=== PATIENT | male | born 1945 | race Caucasian/White ===

== ENCOUNTER → 2016-09-20 | Outpatient (CLI) | payer MEDICARE, OTHER ==
[~2016-09-20] MED LIST: CARV25TA PO; ENAL20TA PO; ESOM40CA PO; FINA5TAB4 PO; FLUT16SP2 NS; HYDR-210 PO; IBUP-1060 PO; IPRA4AER IH; LIPITOR80 MG PO; NITR0.4T SL; NITR1PAT11 TD; SERT50TA PO; TAMS0.4C97 PO; TRAM50TA PO
--- NOTE | 2016-09-20 10:58 | RAD ---
Indication neck pain. AP lateral and odontoid views of the cervical spine were obtained. C1-C6 is seen. C7 is partially visualized. Significant degenerative changes are not seen on plain films particularly given the patient's age. An acute bony finding is not apparent. The prevertebral soft tissues appear unremarkable. IMPRESSION: No significant finding seen in the cervical spine on plain films
== END | disposition home or self-care (01) ==
LOC: RAD 10:10
PROVIDERS: ATTEND Internal Medicine
DX: M47.22 Other spondylosis with radiculopathy, cervical region (principal); M50.30 Other cervical disc degeneration, unspecified cervical region
CPT/HCPCS: 72040

== ENCOUNTER → 2016-12-28 | Outpatient (CLI) | payer MEDICARE, OTHER ==
--- NOTE | 2016-12-28 08:48 | KCIC ---
PROCEDURE Cervical spine MRI without contrast. HISTORY Left-sided neck pain. TECHNIQUE Multiplanar and multi sequence magnetic resonance imaging of the cervical spine was performed without contrast. COMPARISON Radiographs dated 09/20/2016. FINDINGS There is minimal anterolisthesis of C3 on C4, retrolisthesis of C5 on C6 and mild anterolisthesis of C6 on C7 and C7 on T1. There is degenerative endplate remodeling with osteophytosis at multiple levels. There is a mild chronic anterior wedge deformity of T1. There is a small suspected bone island within this segment. There is deformation of the spinal cord due to central canal stenosis predominately at C5-C6 and C6-C7, described in detail below. No spinal cord lesion is seen. The posterior fossa is unremarkable. At C2-C3, there is mild endplate remodeling. There is mild right and moderate left facet arthropathy. There is mild left foraminal stenosis. At C3-C4, there is a diffuse disc bulge and endplate osteophytosis. There is uncovertebral arthropathy. There is mild right and moderate left facet arthropathy. There is mild right and moderate left foraminal stenosis. There is minimal central canal stenosis measuring 9.4 mm in anterior-posterior dimension. At C4-C5, there is endplate remodeling. There is moderate facet arthropathy. There is mild bilateral foraminal stenosis. At C5-C6, there is a broad-based posterior central to left paracentral disc protrusion superimposed on a left lateral predominant disc bulge and endplate osteophytosis. There is uncovertebral arthropathy. There is moderate facet arthropathy. There is buckling of the ligamentum flavum. There is moderate right and severe left foraminal stenosis. There is deformation of the spinal cord with moderate central canal stenosis measuring 7.7 mm in anterior-posterior dimension. At C6-C7, there is a posterior central disc protrusion superimposed on a disc bulge and endplate remodeling. There is mild to moderate facet arthropathy. There is buckling of the ligamentum flavum. There is mild bilateral foraminal stenosis. There is moderate central canal stenosis measuring 7.3 mm in anterior-posterior dimension. IMPRESSION Multilevel degenerative change within the cervical spine, described in detail above. This results in mild left foraminal stenosis at C2-C3, mild right and moderate left foraminal and minimal central canal stenosis at C3-C4, mild bilateral foraminal stenosis at C4-C5, moderate right and severe left foraminal and moderate central canal stenosis at C5-C6, and mild bilateral foraminal and moderate central canal stenosis at C6-C7. Electronically signed by: Maribel Velasquez (Dec 28, 2016 08:46:23)
== END | disposition home or self-care (01) ==
LOC: KCIC MRI 07:36
PROVIDERS: ATTEND Internal Medicine
DX: M48.02 Spinal stenosis, cervical region (principal)
CPT/HCPCS: 72141

== ENCOUNTER → 2017-10-17 | Outpatient (CLI) | payer MEDICARE, OTHER ==
[~2017-10-17] MED LIST changes: -CARV25TA PO; -ENAL20TA PO; -ESOM40CA PO; -FINA5TAB4 PO; -FLUT16SP2 NS; -HYDR-210 PO; -IBUP-1060 PO; +IOHEXOL 180 MG/ML 10 ML VIAL.; -IPRA4AER IH; -LIPITOR80 MG PO; -NITR0.4T SL; -NITR1PAT11 TD; -SERT50TA PO; -TAMS0.4C97 PO; -TRAM50TA PO; +methylPREDNISolone ACETATE 40 MG/ML VIAL.; +methylPREDNISolone ACETATE 80 MG/ML VIAL.
== END | disposition home or self-care (01) ==
LOC: PNCL 08:16
DX: M50.123 Cervical disc disorder at C6-C7 level with radiculopathy (principal); M48.02 Spinal stenosis, cervical region; I10 Essential (primary) hypertension; M19.90 Unspecified osteoarthritis, unspecified site; E78.00 Pure hypercholesterolemia, unspecified; F32.9 Major depressive disorder, single episode, unspecified; F17.200 Nicotine dependence, unspecified, uncomplicated; I25.10 Atherosclerotic heart disease of native coronary artery without angina pectoris; Z98.41 Cataract extraction status, right eye; Z98.42 Cataract extraction status, left eye; Z90.49 Acquired absence of other specified parts of digestive tract
CPT/HCPCS: 62321; J1030; J1040; Q9965

== ENCOUNTER → 2017-11-14 | Outpatient (CLI) | payer MEDICARE, OTHER | LOC: PNCL 09:16 | DX: M50.10 Cervical disc disorder with radiculopathy, unspecified cervical region (principal); M48.02 Spinal stenosis, cervical region; I20.8 Other forms of angina pectoris; I10 Essential (primary) hypertension; I50.9 Heart failure, unspecified; E78.00 Pure hypercholesterolemia, unspecified; J44.9 Chronic obstructive pulmonary disease, unspecified; K21.9 Gastro-esophageal reflux disease without esophagitis; N40.1 Benign prostatic hyperplasia with lower urinary tract symptoms; R33.8 Other retention of urine; M19.90 Unspecified osteoarthritis, unspecified site; F32.9 Major depressive disorder, single episode, unspecified; F17.200 Nicotine dependence, unspecified, uncomplicated; Z98.890 Other specified postprocedural states; Z86.79 Personal history of other diseases of the circulatory system; Z90.49 Acquired absence of other specified parts of digestive tract | CPT/HCPCS: 62321; J1030; J1040; Q9965 ==

== ENCOUNTER 2018-05-11 01:23 | Emergency (ER) | payer MEDICARE, OTHER ==
[~2018-05-11] VITALS: Ht 172.7 cm; Wt 90.7 kg
[~2018-05-11 01:23] MED LIST changes: +CARV25TA PO; +DOCU-109 PO; +ENAL20TA PO; +ESOM40CA PO; +FINA5TAB4 PO; +FLUT16SP2 NS; +HYDR-210 PO; +HYDR30CR60 RC; +IBUP-1060 PO; -IOHEXOL 180 MG/ML 10 ML VIAL.; +IPRA4AER IH; +LIPITOR80 MG PO; +MOME45CR2 TP; +NITR0.4T SL; +NITR1PAT11 TD; +SERT50TA PO; +TAMS0.4C97 PO; +TRAM50TA PO; -methylPREDNISolone ACETATE 40 MG/ML VIAL.; -methylPREDNISolone ACETATE 80 MG/ML VIAL.
[2018-05-11 01:47] LABS: BILIRUBIN,URINE NEGATIVE (NEG); CLARITY,URINE CLEAR; COLOR,URINE YELLOW; NITRITE,URINE NEGATIVE (NEG); PROTEIN,URINE NEGATIVE (NEG-TRACE)
[2018-05-11] MEDS ORDERED: LACT20SO PO (01:53)
[2018-05-11 01:57] LABS: BACTERIA,URINE MANY /HPF (0-FEW); RBC,URINE >40 /HPF (0-2); SQUAMOUS EPITHELIAL CELL,UR FEW /LPF; WBC,URINE TNTC /HPF (0-4)
[2018-05-11] MEDS ORDERED: MAGNESIUM CITRATE 296 ML SOLUTION. PO ONE (02:00)
[2018-05-11] MEDS ORDERED: CEPH500C PO (02:04)
--- NOTE | 2018-05-11 02:08 | PHYS DOC ---
Past Medical History Past Medical History: GA Additional Past Medical Histor: HEART CATH X 10 Past Surgical History: Appendectomy, Cholecystectomy Additional Past Surgical Histo: HERNIA X 3, NECK SX, Alcohol Use: None Drug Use: None Adult General Chief Complaint Chief Complaint: CONSTIPATION HPI HPI Patient is a 72 year old male who presents to the emergency room with chief complaint of urinary retention as well as constipation. He had a neck surgery a couple weeks back he was at [facility] for catheter was just removed today at the urology office and he has not been able to urinate since. He has only had 2 bowel movements in 5 days he has no abdominal pain he is not vomiting he is eating and drinking okay. He is on stool softeners Review of Systems Review of Systems Constitutional: Denies fever or chills [] Eyes: Denies change in visual acuity, redness, or eye pain [] HENT: Denies nasal congestion or sore throat [] Respiratory: Denies cough or shortness of breath [] Cardiovascular: No additional information not addressed in HPI [] Musculoskeletal: Denies back pain or joint pain [] Integument: Denies rash or skin lesions [] Neurologic: Denies headache, focal weakness or sensory changes [] Endocrine: Denies polyuria or polydipsia [] All other systems were reviewed and found to be within normal limits, except as documented in this note. Current Medications Current Medications Current Medications Medications (Trade) Dose Ordered Sig/Cricket Start Time Stop Time Status Last Admin Dose Admin Cephalexin HCl (Keflex) 500 mg 1X STAT 05/11/18 02:02 05/11/18 02:03 UNV Magnesium Citrate (Citroma) 296 ml 1X ONCE 05/11/18 02:00 05/11/18 02:01 DC Allergies Allergies Allergies Coded Allergies Type Severity Reaction Last Updated Verified No Known Drug Allergies 10/27/13 No Physical Exam Physical Exam Constitutional: Well developed, well nourished, no acute distress, non-toxic appearance. [] HENT: Normocephalic, atraumatic, bilateral external ears normal, oropharynx moist, no oral exudates, nose normal. [] Eyes: PERRLA, EOMI, conjunctiva normal, no discharge. [] Pulmonary: Normal respiratory effort no increased work of breathing no obvious chest wall trauma Abdomen: Bowel sounds normal, soft, distended, nontender Extremities: No tenderness, no cyanosis, no clubbing, ROM intact, no edema. [] Neurologic: Alert and oriented X 3, normal motor function, normal sensory function, no focal deficits noted. []5 strength in all extremities Psychologic: Affect normal, judgement normal, mood normal. [] Current Patient Data Vital Signs Vital Signs Date Time Temp Pulse Resp B/P (MAP) Pulse Ox O2 Delivery O2 Flow Rate FiO2 05/11/18 01:25 98.5 93 16 192/79 (116) 98 Room Air 98.5 Lab Values Laboratory Tests Test 05/11/18 01:35 Urine Collection Type U cath Urine Color Yellow Urine Clarity Clear Urine pH 6.0 Urine Specific [place] 1.015 Urine Protein Negative mg/dL (NEG-TRACE) Urine Glucose (UA) Negative mg/dL (NEG) Urine Ketones (Stick) Negative mg/dL (NEG) Urine Blood Large (NEG) Urine Nitrite Negative (NEG) Urine Bilirubin Negative (NEG) Urine Urobilinogen Dipstick 1.0 mg/dL (0.2 mg/dL) Urine Leukocyte Esterase Large (NEG) Urine RBC >40 /HPF (0-2) Urine WBC Tntc /HPF (0-4) Urine Squamous Epithelial Cells Few /LPF Urine Bacteria Many /HPF (0-FEW) EKG EKG [] Radiology/Procedures Radiology/Procedures [] Course & Med Decision Making Course & Med Decision Making Pertinent Labs and Imaging studies reviewed. (See chart for details) []72-year-old male with urinary retention. We placed a Stone 800 MLS came out it was slightly cloudy there was too numerous to count white blood cells we started the patient on Keflex. I performed a rectal examination he does have a large prostate but there is no rectal impaction he was given magnesium citrate as well as prescription for lactulose and Keflex and return precautions were discussed. noted bp advised f/u in one week Dragon Disclaimer Dragon Disclaimer This electronic medical record was generated, in whole or in part, using a voice recognition dictation system. Departure Departure Impression: Primary Impression: Urinary retention Additional Impression: Elevated blood pressure reading Disposition: HOME, SELF-CARE Condition: IMPROVED Patient Instructions: Urinary Retention, Acute, Male Scripts Cephalexin (CEPHALEXIN) 500 Mg Capsule 1 CAP PO QID, #40 CAP Prov: MANASA GERARDO MD 9/8/18 Lactulose (LACTULOSE) 20 Gm/30 Ml Solution 20 GM PO BID for 5 Days, #300 ML Prov: MANASA GERARDO MD 05/11/18 Problem Qualifiers MANASA GERARDO MD May 11, 2018 02:08
[2018-05-11 02:25] VITALS: BP 135/63
[2018-05-11] MEDS ORDERED: CEPHALEXIN 250 MG CAPSULE. PO ONE (02:30)
== END 2018-05-11 02:46 | disposition home or self-care (01) ==
LOC: ER 01:23
DX: R33.9 Retention of urine, unspecified (principal); R03.0 Elevated blood-pressure reading, without diagnosis of hypertension; K59.00 Constipation, unspecified; Z98.890 Other specified postprocedural states; Z90.49 Acquired absence of other specified parts of digestive tract; Z90.89 Acquired absence of other organs
CPT/HCPCS: 51702; 81001; 87086; 99284-25

== ENCOUNTER → 2018-06-12 | Outpatient (CLI) | payer MEDICARE, OTHER ==
[~2018-06-12] MED LIST changes: +CEPH500C PO; +LACT20SO PO
--- NOTE | 2018-06-12 16:46 | KCIC ---
Cervical spine, 2 views, 06/12/2018: HISTORY: Cervical stenosis Comparison is made to a study from 09/20/2016. There has been interval posterior spinal decompression and fusion with bilateral pedicle in place from C3 down through C7 attached to longitudinally oriented posterior fixation rods. The vertebral body alignment appears anatomic, although C7 was not clearly visualized in the lateral projection. There is moderate disc space narrowing and spurring at C5-6, moderate multilevel facet joint arthropathy is again noted. No fracture or subluxation is evident. The prevertebral soft tissues are unremarkable. IMPRESSION: Postoperative changes as described above. Electronically signed by: Josse Koch MD (06/12/2018 4:44 PM) [facility]
== END | disposition home or self-care (01) ==
LOC: KCIC 11:01
PROVIDERS: ATTEND Neurological Surgery
DX: M48.02 Spinal stenosis, cervical region (principal); M12.88 Other specific arthropathies, not elsewhere classified, other specified site; I11.0 Hypertensive heart disease with heart failure; I50.9 Heart failure, unspecified; I25.10 Atherosclerotic heart disease of native coronary artery without angina pectoris; E78.00 Pure hypercholesterolemia, unspecified; J44.9 Chronic obstructive pulmonary disease, unspecified; K21.9 Gastro-esophageal reflux disease without esophagitis; Z87.891 Personal history of nicotine dependence; Z98.890 Other specified postprocedural states
CPT/HCPCS: 72040

== ENCOUNTER → 2018-12-06 | Outpatient (CLI) | payer MEDICARE, OTHER ==
[~2018-12-06] MED LIST changes: +AMLO5TAB10 PO; +ASPI81TA50 PO; +CARV25TA2 PO; +CETI10TA22 PO; +ESCITALOPRAM OX20 MG PO; +LYSI500T PO; +NITR1PAT TD; +SPIR25TA5 PO; +TIZA4TAB PO; +TRIA80OI TP; +[UNRECOGNIZED DRUG - CODE] IV
--- NOTE | 2018-12-06 11:54 | KCIC ---
CHEST PA LATERAL History: Left mid upper chest pain, began yesterday after throwing a ball. Comparison: Two-view chest, July 06, 2012. Findings: The cardiomediastinal silhouette is normal. Pulmonary vasculature is normal. The lungs are clear. No pleural effusion or pneumothorax is seen. There are old right rib fractures. Posterior cervical spine fusion hardware is partially seen. IMPRESSION: No acute cardiopulmonary process. Electronically signed by: Fredi Curry MD (12/06/2018 11:51 AM) [id number]
== END | disposition home or self-care (01) ==
LOC: KCIC 11:20
PROVIDERS: ATTEND Specialist
DX: R07.9 Chest pain, unspecified (principal)
CPT/HCPCS: 71046

== ENCOUNTER → 2021-04-07 | Outpatient (CLI) | payer OTHER ==
[2019-02-12 15:00] VITALS: BP 150/54
[~2021-04-07] MED LIST changes: +AMLO-186 PO; -AMLO5TAB10 PO; -CETI10TA22 PO; +CETI10TA74 PO; -ENAL20TA PO; +ENAL20TA10 PO; -LYSI500T PO; +LYSI500T8 PO; -MOME45CR2 TP; +MOME45CR3 TP; -NITR0.4T SL; +NITR0.4T24 SL; -NITR1PAT11 TD; +NITR1PAT74 TD; -TIZA4TAB PO; +TIZA4TAB2 PO; +[UNRECOGNIZED DRUG - CODE] IV; -[UNRECOGNIZED DRUG - CODE] IV
--- NOTE | 2021-04-07 15:07 | RAD ---
EXAM: Lumbar spine, 3 views. HISTORY: Pain. COMPARISON: None. FINDINGS: 3 views of the lumbar spine are obtained. There is grade 1 anterolisthesis of L4 on L5, michelle suring 5 mm. There is degenerative endplate remodeling at multiple levels. There is facet arthropathy predominantly the lower lumbar levels. 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 There are surgical clips within the right abdomen. IMPRESSION: 1. Multilevel degenerative change, primarily at the lower lumbar levels. 2. No acute osseous finding. Electronically signed by: Maribel Velasquez MD (04/07/2021 3:04 PM) [id number]
--- NOTE | 2021-04-07 15:14 | RAD ---
EXAM: Bilateral lower extremity arterial Doppler sonogram. HISTORY: Peripheral vascular disease. Claudication. Atherosclerosis. TECHNIQUE: Parish scale and color Doppler sonographic imaging lower extreme the arteries with spectral analysis was performed. COMPARISON: None. FINDINGS: There are biphasic and triphasic waveforms throughout the lower extremity arteries. There is an elevated peak systolic velocity within the right common femoral artery, measuring 270 cm/ s. There are elevated peak systolic velocities within the proximal, mid and distal right superficial femoral artery, measuring 161 cm/s, 224 cm/s, and 191 cm/s. There is an elevated peak systolic veloci ty within the right popliteal artery, measuring 180 cm/s. There is a borderline elevated peak systoli c velocity within the distal posterior tibial artery, measuring 150 cm/s. There is an elevated peak systolic velocity within the left common femoral artery, measuring 234 cm/s . There are elevated peak systolic velocities within the proximal and mid left superficial femoral ar antonio, measuring 188 cm/s and 178 cm/s. There is an elevated peak systolic velocity within the left po pliteal artery, measuring 236 cm/s. There is an elevated peak systolic velocity within the distal lef t posterior tibial artery, measuring 208 cm/s. There is an elevated peak systolic velocity within the left dorsalis pedis artery, measuring heart and 69 cm/s. The bilateral peroneal arteries are not seen. IMPRESSION: 1. Abnormal elevated peak systolic velocities within the right greater than left common femoral, righ t mid and distal superficial femoral and left popliteal artery likely due to moderate stenosis. There are also lesser degrees of elevated peak systolic velocities within the proximal left greater than r ight superficial femoral artery, mid left superficial artery, right popliteal artery, right posterior tibial artery and left dorsalis pedis artery, suggesting mild stenosis. 2. Nonvisualization of the peroneal arteries. There is no evidence of occlusion involving the remaind er of the lower extremity arteries. Electronically signed by: Maribel Velasquez MD (04/07/2021 3:12 PM) [id number]
== END ==
LOC: US 14:06
PROVIDERS: ATTEND Internal Medicine
DX: M47.816 Spondylosis without myelopathy or radiculopathy, lumbar region (principal); M43.16 Spondylolisthesis, lumbar region; M48.061 Spinal stenosis, lumbar region without neurogenic claudication; I70.219 Atherosclerosis of native arteries of extremities with intermittent claudication, unspecified extremity
CPT/HCPCS: 72100; 93925

== ENCOUNTER → 2021-09-06 | Outpatient (CLI) | payer OTHER ==
[2019-02-12 15:00] VITALS: BP 150/54
[~2021-09-06] MED LIST changes: +REGADENOSON 0.4 MG/5 ML DISP.SYRIN. IV ONE; +TIZA-75 PO; -TIZA4TAB2 PO
--- NOTE | 2021-09-06 12:09 | RAD ---
MR#: [id number] Date of Study: 09/06/2021 Ordering Physician: ALEJANDRA GARCIA, Referring Physician: SHELL WREN Tech: MARGIE Ruiz, ARRT (R) (N) APPROVED REPORT Test Type: Pharmacological Stress Nurse/Tech: Juan Ramesh RN Test Indications: CAD Cardiac History: DM, CAD Medications: ASA daily, see EMR Medical History: See EMR Resting ECG: SR, BBB Resting Heart Rate: 65 bpm Resting Blood Pressure: 170/74mmHg Pretest Chest Pain: No chest pain Nurse/Tech Notes Lungs diminished, CTA. Heart tones WNL. Pharm. Details Pharmacologic stress testing was performed using 0.4mg per 5ml of regadenoson given intravenously ove r 7-10 seconds. Stress Symptoms Flushing, no chest pain, no SOA. POST EXERCISE Reason for Termination: Infusion complete Max HR: 132 bpm Max Blood Pressure: 172/72mmHg Chest Pain: No. Arrhythmia: No. ST Change: No. INTERPRETATION Stress EKG Conclusion: Baseline EKG showed sinus rhythm with intraventricular conduction delay. Nond iagnostic changes at peak stress. No arrhythmias. Imaging Protocol IMAGE PROTOCOL: Rest Tc-99m/stress Tc-99m 1 day Rest: Stress: Viability: Radiopharm.Tc99m VcxjmqxqlQd46w Sestamibi Bnne51lGs 31mCi Img Date 09/06/2021 09/06/2021 Inj-Img Euse66exx. 60min. Rest Admin Site:IV - Right AntecubitalAdministrator:RT Dee (R)(N) Stress Admin Site: IV - Right AntecubitalAdministrator: RT Dee (R)(N) STRESS DATA End Diast. Vol.132.0mlLVEDV index BSA61.0ml End Syst. Vol.82.0mlLVESV index BSA38.0ml Myocardial Ljlr141.0gEject. Doaojlje68.0% Stress Scores Regional WT3.00Summed WT35.00 Regional WM1.00Summed WM28.00 LV Perfusion Scintigraphic images showed a large predominantly fixed perfusion defect involving the inferior wall and extending into the inferoseptal, septal and apical up consistent with prior myocardial infarct ion without any reversibility. Wall Motion Base to mid inferior and posterior wall hypokinesis with ejection fraction calculated at 42%. LV Perf. Quant 17 Seg. SSS22.00 17 Seg. SRS24.00 17 Seg. SDS1.00 Stress Defect Extent (% LAD)36.30Rest Defect Extent (% LAD)41.30Rev. Defect Extent (% LAD)0.60 Stress Defect Extent (% LCX) 21.30Rest Defect Extent (% LCX)23.80Rev. Defect Extent (% LCX)0.00 Stress Defect Extent (% RCA)80.00Rest Defect Extent (% RCA)83.30Rev. Defect Extent (% RCA)0.00 Stress Defect Extent (% RADHA)46.50Rest Defect Extent (% RADHA)50.00Rev. Defect Extent (% RADHA)0.20 Conclusion 1. Regadenoson cardioisotope stress test showed a large infarct involving the inferior wall and exten ding into the inferoseptal, septal and apical up without any ischemia. 2. Base to mid inferior and posterior wall hypokinesis with ejection fraction calculated at 42%. 3. Low to intermediate risk for cardiac events. Signed by : Abelino Jang, Electronically Approved : 09/06/2021 12:09:21
--- NOTE | 2021-09-06 12:27 | CARD ---
MR#: [id number] Date of Study: 09/06/2021 Ordering Physician: ALEJANDRA GARCIA, Referring Physician: ALEJANDRA GARCIA, Tech: Elicia Figueroa [facility] APPROV[facility] RE[facility] EXAM: Two-dimensional and M-mode echocardiogram with Doppler and color Doppler. Other Information Quality : AverageHR: 83bpm Rhythm : NSR INDICATION Cardiac Disease: CAD RISK FACTORS Hypertension Obesity Hyperlipidemia 2D DIMENSIONS RVDd2.7 (2.9-3.5cm)Left Atrium(2D)4.7 (1.6-4.0cm) IVSd1.2 (0.7-1.1cm)Aortic Root(2D)3.2 (2.0-3.7cm) LVDd4.8 (3.9-5.9cm)LVOT Diameter1.9 (1.8-2.4cm) PWd1.2 (0.7-1.1cm)LVDs3.1 (2.5-4.0cm) FS (%) 34.7 %SV68.8 ml LVEF(%)63.7 (>50%) Aortic Valve AoV Peak Beck.140.4cm/sAoV VTI29.7cm AO Peak GR.7.9mmHgLVOT Peak Beck.92.6cm/s AO Mean GR.4mmHgAVA (VMAX)1.92cm2 Mitral Valve MV E Wbnffjxy39.7cm/sMV DECEL [id number] MV A Gikrjtfp816.3cm/sE/A Ratio0.9 Tricuspid Valve TR P. Zvizvlhv268ln/sTR Peak Gr.35mmHg LEFT VENTRICLE The left ventricle is normal size. There is mild concentric left ventricular hypertrophy. Base to mid inferior and posterior wall hypokinesis. The ejection fraction is estimated at 35-40%. Transmitral D oppler flow pattern is Grade I-abnormal relaxation pattern. RIGHT VENTRICLE The right ventricle is normal size. There is normal right ventricular wall thickness. The right ventr icular systolic function is normal. ATRIA The left atrium size is normal. The right atrium size is normal. The interatrial septum is intact wit h no evidence for an atrial septal defect or patent foramen ovale as noted on 2-D or Doppler imaging. AORTIC VALVE The aortic valve is normal in structure and function. Doppler and Color Flow revealed no significant aortic regurgitation. There is no significant aortic valvular stenosis. MITRAL VALVE The mitral valve is normal in structure and function. There is no evidence of mitral valve prolapse. There is no mitral valve stenosis. Doppler and Color-flow revealed mild mitral regurgitation. TRICUSPID VALVE The tricuspid valve is normal in structure and function. Doppler and Color Flow revealed trace tricus pid regurgitation. Estimated PAP 40 mmHg. There is no tricuspid valve stenosis. PULMONIC VALVE The pulmonic valve is not well visualized. GREAT VESSELS The aortic root is normal in size. The ascending aorta is normal in size. The IVC is normal in size a nd collapses >50% with inspiration. PERICARDIAL EFFUSION There is no evidence of significant pericardial effusion. Critical Notification Critical Value: No <Conclusion> Base to mid inferior and posterior wall hypokinesis. The ejection fraction is estimated at 35-40%. Transmitral Doppler flow pattern is Grade I-abnormal relaxation pattern. Mild mitral regurgitation. Trace tricuspid regurgitation. Estimated PAP 40 mmHg. There is no evidence of significant pericardial effusion. Signed by : Abelino Jang, Electronically Approved : 09/06/2021 12:26:54
== END ==
LOC: NM 07:59
PROVIDERS: ATTEND Internal Medicine Cardiovascular Disease
DX: I34.0 Nonrheumatic mitral (valve) insufficiency (principal); I51.7 Cardiomegaly; I21.9 Acute myocardial infarction, unspecified; I25.10 Atherosclerotic heart disease of native coronary artery without angina pectoris
CPT/HCPCS: 78452; 93017; 93306; A9500; J2785

== ENCOUNTER 2021-11-03 06:47 | Outpatient (CLI) | payer OTHER ==
[2021-11-03] VITALS (12 sets, daily range): BP systolic 106–133; BP diastolic 52–67
[~2021-11-03] VITALS: Ht 170.2 cm; Wt 100.0 kg
[~2021-11-03 06:47] MED LIST changes: -REGADENOSON 0.4 MG/5 ML DISP.SYRIN. IV ONE
[2021-11-03 07:28] LABS: HEMATOCRIT 45.2 % (39.0-53.0); RED BLOOD COUNT 4.94 x10^6/uL (4.30-5.70); RED CELL DISTRIBUTION WIDTH 13.6 % (11.5-14.5); WHITE BLOOD COUNT 7.8 x10^3/uL (4.0-11.0)
[2021-11-03 07:39] LABS: CALCIUM 8.5 mg/dL (8.5-10.1); CREATININE 1.2 mg/dL (0.7-1.3); GFR 58.7; POTASSIUM 4.3 mmol/L (3.5-5.1)
[2021-11-03] MEDS ORDERED: LIDOCAINE 1% Multi-Dose 20 ML VIAL. ONE (07:43)
[2021-11-03] MEDS ORDERED: HEPARIN for ARTERIAL LINE 1,500 ML ONE (07:43)
[2021-11-03] MEDS ORDERED: IODIXANOL 320 MG/ML 100 ML VIAL. ONE (07:43)
[2021-11-03] MEDS ORDERED: PREG100C PO (07:48)
[2021-11-03] MEDS ORDERED: DULO20CA PO (07:48)
[2021-11-03] MEDS ORDERED: ETOD200C2 PO (07:48)
[2021-11-03] MEDS ORDERED: AMLO-186 PO (07:48)
[2021-11-03] MEDS ORDERED: ZOLP5TAB5 PO (07:48)
[2021-11-03] MEDS ORDERED: ENAL20TA10 PO (07:48)
[2021-11-03 08:05] LABS: PROTHROMBIN TIME PATIENT 13.4 SEC (11.7-14.0)
[2021-11-03] MEDS ORDERED: NITROGLYCERIN 200 MCG/2 ML SYRINGE FOR CATH/VASC LAB. ONE (08:55)
[2021-11-03] MEDS ORDERED: VERAPAMIL 5 MG/2 ML VIAL. ONE (08:55)
[2021-11-03] MEDS ORDERED: fentaNYL PF VIAL 100 MCG/2 ML VIAL ONE (08:55)
[2021-11-03] MEDS ORDERED: MIDAZOLAM HCL/PF 2 MG/2 ML VIAL. ONE (08:55)
[2021-11-03] MEDS ORDERED: HEPARIN for IV BOLUS 10,000 UNIT/10 ML VIAL. ONE (08:55)
[2021-11-03] MEDS ORDERED: MIDAZOLAM HCL/PF 2 MG/2 ML VIAL. IV ONE (09:30)
[2021-11-03] MEDS ORDERED: HEPARIN for IV BOLUS 10,000 UNIT/10 ML VIAL. IART ONE (09:30)
[2021-11-03] MEDS ORDERED: fentaNYL PF VIAL 100 MCG/2 ML VIAL IV ONE (09:30)
[2021-11-03] MEDS ORDERED: IODIXANOL 320 MG/ML 100 ML VIAL. IART ONE (09:30)
[2021-11-03] MEDS ORDERED: VERAPAMIL 5 MG/2 ML VIAL. IART ONE (09:30)
[2021-11-03] MEDS ORDERED: LIDOCAINE 1% Multi-Dose 20 ML VIAL. INJ ONE (09:30)
[2021-11-03] MEDS ORDERED: NITROGLYCERIN 200 MCG/2 ML SYRINGE FOR CATH/VASC LAB. IART ONE (09:30)
[2021-11-03] MEDS ORDERED: HEPARIN for IV BOLUS 10,000 UNIT/10 ML VIAL. IV ONE (10:00)
--- NOTE | 2021-11-03 13:29 | NUR ---
Discharge Note: DONNY MARTINEZ [facility] Discharge instructions and discharge home medications reviewed with Patient and a copy given. All questions have been answered and understanding verbalized. The following instructions and handouts were given: radial site care,groin site care,and incision site care Discontinued lines and drains: Peripheral IV intact. Patient discharged to Home or Self Care withSpousevia Wheelchair
--- NOTE | 2021-11-03 14:10 | CARD ---
MR#: [id number] Date of Study: 11/03/2021 Ordering Physician: ALEJANDRA CONNELLY, Referring Physician: ALEJANDRA CONNELLY, Tech: RT Ruel(R) APPROVED REPORT Technologist: Sallie Gonzales RT(R) Nurse: Shona Pedro RN Procedure(s) performed: Fluoro time: 17.9 MIN Dose: 139 GYCM2 Sedation: 80 MINS Contrast: 139 ML RHC, Coronary angiography, LHC iFR of the LM/LAD and LM/LCx. INDICATION The indication(s) include : dyspnea, Abnormal stress test. [facility] Clinical Frailty Scale [facility] Clinical Frailty Scale: Moderately Frail Heart Failure Heart Failure: Yes If Yes, Newly Diagnosed: No If Yes, HF Type: Diastolic Systolic If Yes, NYHA Class: Class II CASE TECHNIQUE IV conscious sedation was used throughout procedure with appropriate monitoring and was performed in the presence of a registered nurse who was an independent trained observer other than the physician p erforming the procedure. During this case, Fluoroscopy and low osmolar contrast were used for imaging . Specimen(s) Removed: N/A Estimated Blood loss: 25 cc's. PROCEDURE NARRATIVE Clinical information: 75-year-old man who presents to the [employer] for persistent dyspnea in the setting of LV dysfunction and abnormal stress test. Procedure details: Under 1% lidocaine local anesthesia and with ultrasound and fluoroscopic guidance a 5 [place] sheath w as placed in the right internal jugular vein, right radial artery. Next diagnostic angiography was p erformed with a 6 [place] TIG catheter, JL 3.5 catheter and a JR4 catheter. Findings: Hemodynamics: Aortic pressure: 150/80 Right heart catheterization RA 7 mmHg RV 32/2/10 PA 30/15/21 Wedge 20 mmHg LVEDP 9 mmHg, no LV to aortic pullback gradient PA saturation 71%, FA saturation 97% Rtuh cardiac output 4.7, cardiac index 2.2 Coronary angiography Left main is a large-caliber vessel with a eccentric ostial approximately 50% stenosis LAD is a moderate caliber vessel with an ostial 50% stenosis Ramus is a small caliber ostially bifurcating vessel with mild diffuse irregularities Left circumflex is a small caliber nondominant vessel with mild luminal irregularities RCA is a large caliber dominant vessel with an ostial 40% stenosis. Interventional technique: Given the eccentric nature of the patient's left main lesion and significant dyspnea with activity a decision was made to assess the lesion for physiologic significance. Heparin was used for anticoagul ation. A guide catheter was not able to be engaged from the radial approach and therefore a 6 [place] sheath was placed in the right common femoral artery via fluoroscopic guidance. Next a 6 [place] JL 3 5 guide catheter was able to cannulate the left main coronary artery. Prior to performing the [facility] tional flow reserve measurement the wire was zeroed in the aorta prior to engagement of the left main coronary artery. The wire was advanced into the distal LAD as well as the circumflex and no signifi cant pressure drop was noted with an IFR of 0.98. There was no significant drift noted. Given the l ack of any significant ischemia further intervention was deferred. At case completion the right radial sheath was removed and hemostasis was achieved via a Terumo radia l band. The right groin sheath was removed and hemostasis was achieved with a Angio-Seal device. Th e right neck sheath was removed and hemostasis was achieved via manual compression. No acute complications Conclusion 1. Normal biventricular filling pressures 2. No significant pulmonary hypertension 3. Low normal cardiac output 4. Two-vessel coronary artery disease with negative IFR of the left main. Recommendations 1. Consider evaluation for other causes of exertional dyspnea including pulmonary pathology 2. Initiate Jardiance 10 mg daily and continue enalapril and carvedilol 3. Plan for consideration of outpatient BiV ICD for optimization of cardiomyopathy. Signed by : Alejandra Connelly, Electronically Approved : 11/03/2021 14:09:39
== END 2021-11-03 13:30 | disposition home or self-care (01) ==
LOC: CCL 06:47
PROVIDERS: ATTEND Internal Medicine Cardiovascular Disease
DX: R94.39 Abnormal result of other cardiovascular function study (principal); I25.10 Atherosclerotic heart disease of native coronary artery without angina pectoris; R06.00 Dyspnea, unspecified; I11.0 Hypertensive heart disease with heart failure; I50.1 Left ventricular failure, unspecified; I42.9 Cardiomyopathy, unspecified; I25.2 Old myocardial infarction; E78.00 Pure hypercholesterolemia, unspecified; J44.9 Chronic obstructive pulmonary disease, unspecified; M19.90 Unspecified osteoarthritis, unspecified site; F32.9 Major depressive disorder, single episode, unspecified; N40.0 Benign prostatic hyperplasia without lower urinary tract symptoms; Z98.890 Other specified postprocedural states; Z79.899 Other long term (current) drug therapy; Z87.891 Personal history of nicotine dependence
CPT/HCPCS: 36415; 76937; 80048; 85027; 85347; 85610; 93460; 93571; 93572; 99152; 99153; C1760; C1769; C1773; C1887; C1894; G0269; J1644; J2250; J3010; J3490; Q9967

== ENCOUNTER → 2021-11-16 | Outpatient (CLI) | payer OTHER ==
[2021-11-03 12:50] VITALS: BP 124/61
[~2021-11-16] MED LIST changes: +DULO20CA PO; +ETOD200C2 PO; +PREG100C PO; +ZOLP5TAB5 PO
--- NOTE | 2021-11-16 13:23 | RAD ---
EXAM: Chest, 2 views. HISTORY: COPD. COMPARISON: 02/11/2019 FINDINGS: 2 views of the chest are obtained. There is no infiltrate, effusion or pneumothorax. The he art is normal in size. There are multiple healed rib fractures. There is cervical spinal fusion instr umentation. There is hyperinflation due to inspiratory effort or emphysema. IMPRESSION: No acute pulmonary finding. Electronically signed by: Maribel Velasquez MD (11/16/2021 1:21 PM) [id number]
== END ==
LOC: RAD 11:23
PROVIDERS: ATTEND Internal Medicine Critical Care Medicine
DX: J98.11 Atelectasis (principal); J44.9 Chronic obstructive pulmonary disease, unspecified; Z98.1 Arthrodesis status
CPT/HCPCS: 71046

== ENCOUNTER 2021-12-05 09:57 | Observation (INO) | payer OTHER ==
[2021-12-05] VITALS (7 sets, daily range): BP systolic 113–175; BP diastolic 57–97
[~2021-12-05] VITALS: Ht 172.7 cm; Wt 99.4 kg
[~2021-12-05 09:57] MED LIST changes: +HYDROmorphone 2 MG/ML INJ. IVP PRN; +IV RINGERS,LACTATED 1000ML 1,000 ML IV SCH; +MORPHINE SULFATE 2 MG/ML INJ. IVP PRN; +PROCHLORPERAZINE 10 MG/2 ML VIAL. IVP PRN; +ceFAZolin SODIUM 1 GM in IV NORMAL SALINE 100ML 100 ML IRR ONE; +fentaNYL PF VIAL 100 MCG/2 ML VIAL IVP PRN
[2021-12-05 10:39] LABS: CALCIUM 8.8 mg/dL (8.5-10.1); CREATININE 1.3 mg/dL (0.7-1.3); GFR 53.4; POTASSIUM 4.3 mmol/L (3.5-5.1)
--- NOTE | 2021-12-05 10:43 | EKG ---
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
[2021-12-05 10:47] LABS: HEMATOCRIT 43.7 % (39.0-53.0); HEMOGLOBIN 14.5 g/dL (13.0-17.5); RED BLOOD COUNT 4.74 x10^6/uL (4.30-5.70); RED CELL DISTRIBUTION WIDTH 13.4 % (11.5-14.5); WHITE BLOOD COUNT 6.4 x10^3/uL (4.0-11.0)
[2021-12-05] MEDS ORDERED: EMPA10TA3 PO (11:01)
[2021-12-05] MEDS ORDERED: LYSI500T8 PO (11:01)
[2021-12-05] MEDS ORDERED: TRIA15OI9 TP (11:01)
[2021-12-05] MEDS ORDERED: FLUT1BLS3 IH (11:01)
[2021-12-05 11:08] LABS: PROTHROMBIN TIME PATIENT 12.7 SEC (11.7-14.0)
[2021-12-05] MEDS ORDERED: PROPOFOL 50 ML IV ONE (11:24)
[2021-12-05] MEDS ORDERED: DEXAMETHASONE SOD PHOS 4 MG/ML VIAL ONE (11:24)
[2021-12-05] MEDS ORDERED: KETAMINE HCL IN NACL, ISO-OSM 50 MG/5 ML SYRINGE ONE (11:24)
[2021-12-05] MEDS ORDERED: fentaNYL PF VIAL 100 MCG/2 ML VIAL ONE (11:24)
[2021-12-05] MEDS ORDERED: ONDANSETRON PF 4 MG/2 ML VIAL. ONE (11:24)
[2021-12-05] MEDS ORDERED: PROPOFOL 10 MG/ML (20ML) VIAL. IV ONE (11:24)
[2021-12-05] MEDS ORDERED: PHENYLEPHRINE in 0.9% NACL PF 1 MG/10 ML SYRINGE. IV ONE (11:25)
[2021-12-05] MEDS ORDERED: LIDOCAINE 2%/EPI 1:100,000 20 ML VIAL. ONE (11:38)
[2021-12-05] MEDS ORDERED: IODIXANOL 320 MG/ML 100 ML VIAL. ONE (11:39)
[2021-12-05] MEDS ORDERED: PROPOFOL 150 ML IV ONE (11:59)
[2021-12-05] MEDS ORDERED: LIDOCAINE 2%/EPI 1:100,000 20 ML VIAL. IJ ONE (12:45)
[2021-12-05] MEDS ORDERED: IODIXANOL 320 MG/ML 100 ML VIAL. IART ONE (12:45)
--- NOTE | 2021-12-05 14:00 | CARD ---
MR#: [id number] Date of Study: 12/05/2021 Ordering Physician: SRINATH JANG, Referring Physician: SRINATH JANG, Tech: APPROVED REPORT EXAM Implantation of Biotronik biventricular implantable cardioverter defibrillator/cardiac resynchronizat ion therapy-defibrillation (BiV ICD/VACUUM BOTTLE ASSEMBLER-D) Defibrillation thresholds measurement at the time of implantation FLUORO TIME: 9.4MIN DOSE: [id number] CONTRAST: 20CC INDICATIONS Primary prevention of sudden cardiac and cardiac resynchronization therapy in a patient with kn own history of chronic systolic heart failure with EF less than 35% and left bundle branch block PROCEDURE After explaining the risks, benefits, and alternative options, informed consent was obtained from the patient. The patient was brought to the cardiac catheterization lab and the left chest and shoulder were prepp ed and draped in the usual fashion. IV conscious sedation was used throughout procedure with appropriate monitoring and was performed in the presence of a registered nurse who was an independent trained observer other than the physician p erforming the procedure. During this case, Fluoroscopy and low osmolar contrast were used for imaging. Specimen(s) Removed: No Estimated Blood loss: 15 cc's. 30 cc of 2% lidocaine was infiltrated in the skin and subcutaneous tissues for local anesthesia. An incision was made over the left infraclavicular fossa and using blunt dissection and cautery, a pocke t was created. Venous access was obtained in the left subclavian vein and 9 Portuguese sheath was insert ed. With the help of contrast injections in the right atrium using CASS2 catheter, the coronary sinu s ostium was engaged and the sheath advanced into the coronary sinus. Contrast injections were perfo rmed to obtain coronary sinus venogram to identify the appropriate cardiac vein for placement of the left ventricular lead. A Biotronik quadripolar left ventricle lead model Sentus ProMRI OTW QPL-85/49 , serial #[id number] was advanced under fluoroscopic guidance and the tip was positioned in the later al vein. Subsequently, venous access was again obtained in the left subclavian vein under fluoroscopy guidance and 10.5 and 6 Portuguese sheaths inserted. A bipolar active-fixation right ventricular lead model Plex a Pro MRI, serial #[id number] was positioned in the right ventricular apex. Following this, a Biotroni WhoseView.ie bipolar active-fixation right atrial lead model Solia serial #[id number] was positioned in the righ t atrial appendage under fluoroscopic guidance. The leads were secured into place and were attached to a Biotronik biventricular ICD/VACUUM BOTTLE ASSEMBLER-D generator model Rivacor 7HF-T QP, serial #[id number]. This was placed in the pocket that was subsequently closed in 3 layers. Hemostasis was secured. Ventricular fibrillation was then induced to check the defibrillation thresholds. Patient successful ly converted to sinus rhythm with 15 J shock therapy. The right atrial lead showed a sensing amplitu de of 3.0 mV, impedance of 540 ohms and a threshold of 0.5 V. The right ventricular lead showed a se nsing amplitude of 10 mV, impedance of 820 ohms and a threshold of 0.5 V. The left ventricular lead showed a sensing amplitude of 5 mV, impedance of 960 ohms and a threshold of 0.4 V. Patient tolerate d the procedure well. There were no immediate complications. CONCLUSION Successful implantation of Biotronik biventricular ICD/VACUUM BOTTLE ASSEMBLER-D for primary prevention of sudden cardiac and cardiac resynchronization therapy in a patient with chronic systolic heart failure with EF less than 35% and left bundle branch block. Defibrillation thresholds were measured at the time of implantation. Signed by : Srinath Jang, Electronically Approved : 12/05/2021 14:00:04
[2021-12-05] MEDS ORDERED: ACETAMINOPHEN 325 MG TABLET. PO PRN (14:15)
--- NOTE | 2021-12-05 15:27 | RAD ---
XR CHEST 1V History: Reason: Post pacemaker. Comparison: November 16, 2021 Findings: Interval placement left-sided pacemaker/ICD with RA, RV and epicardial leads. No pneumothorax. Mild b ibasilar linear atelectasis. No pleural effusion. Unchanged heart size. Postop changes cervical spine . Impression: 1. Interval placement left-sided pacemaker. No pneumothorax. 2. Mild bibasilar linear atelectasis. Electronically signed by: Jasvir Workman DO (12/05/2021 3:25 PM) [id number]
[2021-12-05] MEDS ORDERED: ceFAZolin SODIUM IV Push 1 GM VIAL. IVP ONE (17:00)
[2021-12-06 03:02] VITALS: BP 167/69
[2021-12-06 07:00] VITALS: BP 179/83
[2021-12-06] MEDS ORDERED: CARVEDILOL 12.5 MG TABLET. PO SCH (09:00)
[2021-12-06] MEDS ORDERED: LISINOPRIL 20 MG TABLET PO ONE (10:15)
--- NOTE | 2021-12-06 10:51 | RAD ---
XR CHEST 2V History: Reason: 1 day post pacemaker implantation / Spl. Instructions: / History: Comparison: December 05, 2021 Findings: Mild linear bibasilar opacities, likely atelectasis. No pleural effusion. No pneumothorax. Unchanged heart size. Stable left sided pacemaker. Postop changes cervical spine. Chronic right-sided rib fract ures. Impression: 1. Stable left-sided pacemaker. Electronically signed by: Jasvir Workman DO (12/06/2021 10:48 AM) [id number]
[2021-12-06 11:00] VITALS: BP 164/75
[2021-12-06] MEDS ORDERED: LISINOPRIL 20 MG TABLET PO SCH (11:00)
--- NOTE | 2021-12-06 12:37 | PDOC3 ---
JEREMIAH FREEMAN [employer] 12/06/21 1237: Discharge Summary Visit Information Date of Admission: Dec 05, 2021 Date of Discharge: Dec 06, 2021 Admitting Diagnosis: Cardiomyopathy, HTN chronic systolic CHF, LBBB Final Diagnosis Cardiomyopathy, chronic systolic CHF, HTN, LBBB, S/P NUCLEAR PLANT OPERATOR-D Brief Hospital Course Allergies Allergies Coded Allergies Type Severity Reaction Last Updated Verified No Known Drug Allergies 10/27/13 No Vital Signs Vital Signs Date Time Temp Pulse Resp B/P (MAP) Pulse Ox O2 Delivery O2 Flow Rate FiO2 12/06/21 11:00 97.8 76 18 164/75 (104) 95 97.8 12/06/21 08:00 Nasal Cannula 2.0 Lab Results Laboratory Tests Test 12/05/21 10:20 White Blood Count 6.4 x10^3/uL (4.0-11.0) Red Blood Count 4.74 x10^6/uL (4.30-5.70) Hemoglobin 14.5 g/dL (13.0-17.5) Hematocrit 43.7 % (39.0-53.0) Mean Corpuscular Volume 92 fL (79-100) Mean Corpuscular Hemoglobin 31 pg (25-35) Mean Corpuscular Hemoglobin Concent 33 g/dL (31-37) Red Cell Distribution Width 13.4 % (11.5-14.5) Platelet Count 179 x10^3/uL (140-400) Prothrombin Time 12.7 SEC (11.7-14.0) Prothromb Time International Ratio 1.0 (0.8-1.1) Sodium Level 141 mmol/L (136-145) Potassium Level 4.3 mmol/L (3.5-5.1) Chloride Level 108 mmol/L (98-107) Carbon Dioxide Level 24 mmol/L (21-32) Anion Gap 9 (6-14) Blood Urea Nitrogen 19 mg/dL (8-26) Creatinine 1.3 mg/dL (0.7-1.3) Estimated GFR (Cockcroft-Gault) 53.4 Glucose Level 108 mg/dL (70-99) Calcium Level 8.8 mg/dL (8.5-10.1) Brief Hospital Course Mr. Duran is a pleasant 76 yo male admitted for planned. NUCLEAR PLANT OPERATOR-D placement. He had successful implantation of Biotronik biventricular ICD/NUCLEAR PLANT OPERATOR-D for primary prevention of sudden cardiac and cardiac resynchronization therapy in a patient with chronic systolic heart failure with EF less than 35% and left bundle branch block. Defibrillation thresholds were measured at the time of implantation. Repeat interrogation revealed normal impedances and no immediate complications. He tolerated the procedure well with no significnat post surgical pain. His BP was labile but improved after resuming his home BP meds. Denies any chest pain or SOA. No palpitations. AOX3, LSCTA, adb soft and nontender. No significant peripheral edema. Left chest insicion well approximated with steristrips, currently AUNDREA. No erythema or significnat drain or swelling. Neurovascular status to LUE intact and LUE immobilizer is in place. VSS. Discussed DC instructions with spouse and pt. No changes to his home medi cations. Follow up in office as scheduled. Discharge Information Follow Up: Weeks (2) Disposition/Orders: D/C to Home Scheduled Amlodipine Besylate (Amlodipine Besylate) 5 Mg Tablet, 5 MG PO DAILY for blood pressure, (Reported) Entered as Reported by: Sharda Ya on 11/03/21 0748 Last Taken: Unknown Dose on 12/05/21 Last Action: Continued on 12/06/21 1001 by JAYA MAYORGA Aspirin (Aspir-Low) 81 Mg Tablet., 1 TAB PO DAILY for heart, #30 Ref 3 (Reported) Entered as Reported by: LEX MENSAH on 02/11/191617 Last Taken: Unknown Dose on 12/05/21 Last Action: Reviewed on 12/05/21 110 by Sharda Ya Atorvastatin Calcium (Lipitor) 80 Mg Tablet, 80 MG PO DAILY, (Reported) Entered as Reported by: JARRED MARMOLEJO on 10/01/13 0952 Last Action: Reviewed on 12/05/21 110 by Sharda Ya Carvedilol (Carvedilol) 25 Mg Tablet, 25 MG PO BIDWMEALS for CARDIAC, (Reported) Entered as Reported by: LEX MENSAH on 02/11/19 161 Last Taken: Unknown Dose on 12/05/21 Last Action: Reviewed on 12/05/21 110 by Sharda Ya Docusate Sodium (Colace) 100 Mg Capsule, 100 MG PO HS, (Reported) Entered as Reported by: DAVE GAO on 10/17/17921 Last Action: Reviewed on 12/05/211100 by Sharda Ya Duloxetine Hcl (Cymbalta) 20 Mg Capsule.dr, 1 CAP PO DAILY for depression, #30 Ref 2 (Reported) Entered as Reported by: Sharda Ya on 11/03/21747 Last Taken: Unknown Dose on 12/05/21 Last Action: Reviewed on 12/05/211100 by Sharda Ya Empagliflozin (Jardiance) 10 Mg Tablet, 10 MG PO DAILY for Type 2 diabetes, (Reported) Entered as Reported by: Sharda Ya on 12/05/211100 Last Action: New Order on 12/05/211100 by Sharda Ya Enalapril Maleate (Enalapril Maleate) 20 Mg Tablet, 1 TAB PO DAILY for blood pressure, #90 Ref 1 (Reported) Entered as Reported by: Sharda Ya on 11/03/21747 Last Taken: Unknown Dose on 12/05/21 Last Action: Converted on 12/06/211000 by JAYA MAYORGA Esomeprazole Magnesium (Nexium Capsule) 40 Mg Capsule.dr, 40 MG PO DAILY, (Reported) Entered as Reported by: JARRED MARMOLEJO on 10/01/13951 Last Taken: Unknown Dose on 12/05/21 Last Action: Reviewed on 12/05/211100 by Sharda Ya Etodolac (Etodolac) 200 Mg Capsule, 400 MG PO DAILY for arthritis, (Reported) Entered as Reported by: Sharda Ya on 11/03/21747 Last Taken: Unknown Dose on 12/05/21 Last Action: Reviewed on 12/05/211100 by Sharda Ya Finasteride (Finasteride) 5 Mg Tablet, 5 MG PO DAILY, (Reported) Entered as Reported by: JARRED MARMOLEJO on 10/01/13951 Last Taken: Unknown Dose on 12/05/21 Last Action: Reviewed on 12/05/211100 by Sharda Ya Fluticasone Propionate (Flonase) 16 Gm [place].susp, 16 GM NS DAILY, (Reported) Entered as Reported by: JARRED MARMOLEJO on 10/01/13951 Last Action: Reviewed on 12/05/211100 by Sharda Ya Fluticasone/Umeclidin/Vilanter (Trelegy Ellipta 100-62.5-25) 1 Each Blst.w.dev, 1 EACH IH DAILY for breathing, (Reported) Entered as Reported by: Sharda Ya on 12/05/211100 Last Action: New Order on 12/05/211100 by Sharda Ya Lysine (L-Lysine) 500 Mg Tablet, 1 TAB PO DAILY for immune support for 30 Days, #30 Ref 0 (Reported) Entered as Reported by: Sharda Ya on 12/05/211100 Last Action: New Order on 12/05/211100 by Sharda Ya Nitroglycerin (Nitrostat) 0.4 Mg Tab.subl, 0.4 MG SL PRN DAILY, (Reported) Entered as Reported by: JARRED MARMOLEJO on 10/01/13 0952 Last Action: Reviewed on 12/05/211100 by Sharda Ya Nitroglycerin (MINITRAN 0.4mg/hr) 1 Each Patch.td24, 1 PATCH TD DAILY for chest pain, (Reported) Entered as Reported by: LEX MENSAH on 02/11/19 1618 Last Action: Reviewed on 12/05/211100 by Sharda Ya Sertraline Hcl (Zoloft) 50 Mg Tablet, 50 MG PO HS, (Reported) Entered as Reported by: JARRED MARMOLEJO on 10/01/13 0952 Last Action: Reviewed on 12/05/211100 by Sharda Ya Tamsulosin Hcl (Flomax) 0.4 Mg Cap.er.24h, 0.4 MG PO BID for prostate, (Reported) Entered as Reported by: JARRED MARMOLEJO on 10/01/13 0952 Last Taken: Unknown Dose on 12/05/21 Last Action: Edited on 12/05/211100 by Sharda Ya Scheduled PRN Triamcinolone Acetonide (Triamcinolone Acetonide 0.5% Oint) 15 Gm Oint...g., 1 YUN TP PRN TID PRN for rash, #30 Ref 0 (Reported) apply to affected area(s) Entered as Reported by: Sharda Ya on 12/05/211100 Last Action: New Order on 12/05/211100 by Sharda Ya Zolpidem Tartrate (Zolpidem Tartrate) 5 Mg Tablet, 5 MG PO PRN QHS PRN for INSOMNIA, Ref 0 (Reported) Entered as Reported by: Sharda Ya on 11/03/21 0748 Last Action: Reviewed on 12/05/211100 by Sharda Ya Patient Instructions Patient Instructions Must know & what to expect after device implant: 1. Your surgical dressing should be removed prior to discharge from the hospital, but allow the steri- strips to fall off naturally. 2. Activity restrictions: DO NOT raise arm above shoulder level, lift anything heavier than a gallon of milk, and no push or pull motions such as vacuuming/lawn mowing, no swinging motions (golf), etc for 4 weeks. 3. It is OK to use a cell phone or other electronic devices just be sure you do not store it in a breast pocket on the side where the device was placed. 4. Device will be interrogated prior to your discharge from the hospital and then every 3 months for defibrillators and every 6 months for pacemakers. You may be asked to have your device checked remotely from home as well, but this will depend on your particular physicians preference. 5. You may remove the arm immobilizer the day after device placement. Wear the arm immobilizer/splint at night (during sleep times) for 2 week to prevent unintended arm movement that can cause lead dislodgement. 6. Do not drive for one week as the task of driving may lead to unintended arm motion that may cause lead dislodgement. The seatbelt will also rub against the incision site & cause irritation. 7. It is our recommendation that you utilize Tylenol at home for pain control. You need to call our office if you are having uncontrollable pain at the incision site. 8. Keep your incision clean and dry. It is OK to shower. DO NOT submerge in bath, pool, or hot tub, until cleared by your doctor, as this could lead to increase risk of infection.. It is OK to use regular soap just do not scrub the incision site. Water spray from shower should not directly hit the incision. Be sure to blot dry not rub. 9. Inspect your incision daily. If you notice any increased redness, swelling, or drainage, or if you start running a fever, call the office immediately. The number is [phone]. 10. For women, if you need to protect against irritation from the bra straps, you can place a piece of gauze over the incision site for cushion. Please be sure to tape it loosely to allow air to the site & remove the gauze when you remove the bra. 11. Be sure to carry your device identification information card in your wallet/purse at all times. 12. It is OK to go through security at the airport with your device, but be sure to let the TSA know prior to proceeding as the security settings change depending on varying factors. Please do whatever is requested by security at that time. 13. Some of the newer devices may be MRI compatible but, currently, the use of these devices is not widespread, so you likely will not be able to have an MRI. Please clarify this with your physician. Special instructions for defibrillator patients: If your device recognizes a rhythm that requires treatment with a shock, you will most likely feel the shock. This is usually not a subtle feeling and it is uncomfortable. Please follow these steps if you receive a shock: Call the office if you receive one shock. Go to the emergency room if you receive two consecutive shocks- please have someone drive you & call 911 if nobody is available- DO NOT drive yourself. Call 911 if you receive more than 2 consecutive shocks. If at any time, you feel lightheaded or dizzy/faint, stop what you are doing & lie down immediately. If you are driving, get to the side of the road quickly, turn your car off & call 911 on your cell phone. DO NOT continue to drive as this may cause an accident that seriously injures yourself &/or others. Call the office at [phone] for any questions or concerns. Justicifation of Admission Dx: Justifications for Admission: Justification of Admission Dx: Yes SRINATH SÁNCHEZ MD 12/06/21 1641: Discharge Summary Brief Hospital Course Brief Hospital Course Patient seen and examined. Agree with SPANISHER's assessment and plan. Patient underwent successful biventricular ICD implantation yesterday chronic systolic heart failure, EF less than 35% and left bundle branch block. Chest x-ray did not show any pneumothorax. Device interrogation showed normal function. Incision looked good. Follow-up with our office in 2 weeks for wound check. Discharge Information Scheduled Amlodipine Besylate (Amlodipine Besylate) 5 Mg Tablet, 5 MG PO DAILY for blood pressure, (Reported) Entered as Reported by: Sharda Ya on 11/03/21 0748 Last Taken: Unknown Dose on 12/05/21 Last Action: Continued on 12/06/21 100 by JAYA MAYORGA Aspirin (Aspir-Low) 81 Mg Tablet.dr, 1 TAB PO DAILY for heart, #30 Ref 3 (Reported) Entered as Reported by: LEX MENSAH on 02/11/191617 Last Taken: Unknown Dose on 12/05/21 Last Action: Reviewed on 12/05/211100 by Sharda Ya Atorvastatin Calcium (Lipitor) 80 Mg Tablet, 80 MG PO DAILY, (Reported) Entered as Reported by: JARRED MARMOLEJO on 10/01/13 0952 Last Action: Reviewed on 12/05/211100 by Sharda Ya Carvedilol (Carvedilol) 25 Mg Tablet, 25 MG PO BIDWMEALS for CARDIAC, (Reported) Entered as Reported by: LEX MENSAH on 02/11/191617 Last Taken: Unknown Dose on 12/05/21 Last Action: Reviewed on 12/05/211100 by Sharda Ya Docusate Sodium (Colace) 100 Mg Capsule, 100 MG PO HS, (Reported) Entered as Reported by: DAVE GAO on 10/17/17921 Last Action: Reviewed on 12/05/211100 by Sharda Ya Duloxetine Hcl (Cymbalta) 20 Mg Capsule.dr, 1 CAP PO DAILY for depression, #30 Ref 2 (Reported) Entered as Reported by: Sharda Ya on 11/03/21 0748 Last Taken: Unknown Dose on 12/05/21 Last Action: Reviewed on 12/05/211100 by Sharda Ya Empagliflozin (Jardiance) 10 Mg Tablet, 10 MG PO DAILY for Type 2 diabetes, (Reported) Entered as Reported by: Sharda Ya on 12/05/211100 Last Action: New Order on 12/05/211100 by Sharda Ya Enalapril Maleate (Enalapril Maleate) 20 Mg Tablet, 1 TAB PO DAILY for blood pressure, #90 Ref 1 (Reported) Entered as Reported by: Sharda Ya on 11/03/21747 Last Taken: Unknown Dose on 12/05/21 Last Action: Converted on 12/06/211000 by JAYA MAYORGA Esomeprazole Magnesium (Nexium Capsule) 40 Mg Capsule.dr, 40 MG PO DAILY, (Reported) Entered as Reported by: JARRED MARMOLEJO on 10/01/13951 Last Taken: Unknown Dose on 12/05/21 Last Action: Reviewed on 12/05/211100 by Sharda Ya Etodolac (Etodolac) 200 Mg Capsule, 400 MG PO DAILY for arthritis, (Reported) Entered as Reported by: Sharda Ya on 11/03/21747 Last Taken: Unknown Dose on 12/05/21 Last Action: Reviewed on 12/05/211100 by Sharda Ya Finasteride (Finasteride) 5 Mg Tablet, 5 MG PO DAILY, (Reported) Entered as Reported by: JARRED AMRMOLEJO on 10/01/13951 Last Taken: Unknown Dose on 12/05/21 Last Action: Reviewed on 12/05/211100 by Sharda Ya Fluticasone Propionate (Flonase) 16 Gm [place].susp, 16 GM NS DAILY, (Reported) Entered as Reported by: JARRED MARMOLEJO on 10/01/13951 Last Action: Reviewed on 12/05/211100 by Sharda Ya Fluticasone/Umeclidin/Vilanter (Trelegy Ellipta 100-62.5-25) 1 Each Blst.w.dev, 1 EACH IH DAILY for breathing, (Reported) Entered as Reported by: Sharda Ya on 12/05/211100 Last Action: New Order on 12/05/211100 by Sharda Ya Lysine (L-Lysine) 500 Mg Tablet, 1 TAB PO DAILY for immune support for 30 Days, #30 Ref 0 (Reported) Entered as Reported by: Sharda Ya on 12/05/211100 Last Action: New Order on 12/05/211100 by Sharda Ya Nitroglycerin (Nitrostat) 0.4 Mg Tab.subl, 0.4 MG SL PRN DAILY, (Reported) Entered as Reported by: JARRED MARMOLEJO on 10/01/13951 Last Action: Reviewed on 12/05/211100 by Sharda Ya Nitroglycerin (MINITRAN 0.4mg/hr) 1 Each Patch.td24, 1 PATCH TD DAILY for chest pain, (Reported) Entered as Reported by: LEX MENSAH on 02/11/19 1618 Last Action: Reviewed on 12/05/211100 by Sharda Ya Sertraline Hcl (Zoloft) 50 Mg Tablet, 50 MG PO HS, (Reported) Entered as Reported by: JARRED MARMOLEJO on 10/01/13951 Last Action: Reviewed on 12/05/211100 by Sharda Ya Tamsulosin Hcl (Flomax) 0.4 Mg Cap.er.24h, 0.4 MG PO BID for prostate, (R eported) Entered as Reported by: JARRED MARMOLEJO on 10/01/13951 Last Taken: Unknown Dose on 12/05/21 Last Action: Edited on 12/05/211100 by Sharda Ya Scheduled PRN Triamcinolone Acetonide (Triamcinolone Acetonide 0.5% Oint) 15 Gm Oint...g., 1 YUN TP PRN TID PRN for rash, #30 Ref 0 (Reported) apply to affected area(s) Entered as Reported by: Sharda Ya on 12/05/211100 Last Action: New Order on 12/05/211100 by Sharda Ya Zolpidem Tartrate (Zolpidem Tartrate) 5 Mg Tablet, 5 MG PO PRN QHS PRN for INSOMNIA, Ref 0 (Reported) Entered as Reported by: Sharda Ya on 11/03/21 0748 Last Action: Reviewed on 12/05/211100 by JEREMIAH Kevin APRN Dec 06, 2021 12:37 SRINATH SÁNCHEZ MD Dec 06, 2021 16:41
--- NOTE | 2021-12-06 12:48 | NUR ---
SS following for discharge planning. SS reviewed pt chart and discussed with pt RN. Pt is from home with spouse. Discharge order on the chart for home with self care.
--- NOTE | 2021-12-06 16:01 | NUR ---
Discharge Note: DONNY MARTINEZ Discharge instructions and discharge home medications reviewed with Patient and a copy given. All questions have been answered and understanding verbalized. The following instructions and handouts were given: Pacemaker instructions and follow up appointments Discontinued lines and drains: Both IV's and phototypesetting equipment monitor removed Patient discharged to home with spouse
== END 2021-12-06 15:20 | disposition home or self-care (01) ==
LOC: SURG 09:57 → 6 SOUTH 12:50
PROVIDERS: ADMIT Internal Medicine Cardiovascular Disease; ATTEND Internal Medicine Cardiovascular Disease
DX: I44.7 Left bundle-branch block, unspecified (principal); I42.8 Other cardiomyopathies; I11.0 Hypertensive heart disease with heart failure; I50.22 Chronic systolic (congestive) heart failure; I42.9 Cardiomyopathy, unspecified; E11.9 Type 2 diabetes mellitus without complications; M19.90 Unspecified osteoarthritis, unspecified site; F32.A Depression, unspecified; Z79.82 Long term (current) use of aspirin; Z79.84 Long term (current) use of oral hypoglycemic drugs; Z79.899 Other long term (current) drug therapy; Z98.890 Other specified postprocedural states
CPT/HCPCS: 33225; 33249; 36415; 71045; 71046; 80048; 85027; 85610; 93005; 93640; 96374; 96375; C1769; C1882; G0378; G0379; J0690; J1100; J2270; J2370; J2405; J2704; J3490; Q9967; J3010